=== PATIENT | female | born 1970 | race Caucasian/White ===

== ENCOUNTER 2016-11-25 06:03 | Day surgery (SDC) | payer BC ==
[~2016-11-25 06:03] MED LIST: Lactated Ringers 1,000 ML IV SCH; Lidocaine 1%/Sod Bicarbonate in NS 8.4% 1 ML Syringe PRN; Pregabalin 25 MG Cap PO ONE; Sodium Chloride 0.9% 10 ML Syringe FLUSH PRN; oxyCODONE ER 10 MG TAB.ER PO ONE
[2016-11-25] MEDS ORDERED: Triamcinolone Acetonide 40 MG/ML 1 ML MDV ONE (06:12)
[2016-11-25] MEDS ORDERED: EPINEPHrine 1:1000 1 MG/ML 30 ML MDV ONE (06:12)
--- NOTE | 2016-11-25 06:53 | PCM.PREANE ---
Preanesthetic Assessment - Procedure Proposed Procedure: Left hip video arthroscopy with labral repair - Anesthesia/Transfusion/Family Hx Anesthesia History: Prior Anesthesia Reaction (some nausea from surgery) Family History of Anesthesia Reaction: No Transfusion History: No Prior Transfusion(s) Intubation History: Unknown - Review of Systems General: Other (sinus pressure, in clinic yesterday for it and they okayed her for surgery ) Pulmonary: No Symptoms Cardiovascular: No Symptoms Gastrointestinal: No symptoms Neurological: No Symptoms Other: Reports: None - Physical Assessment NPO Status Date: 11/24/16 NPO Status Time: 21:30 Pulse: 94 O2 Sat by Pulse Oximetry: 99 Respiratory Rate: 16 Blood Pressure: 133/89 Temperature: 37.2 C Height: 1.55 m Weight: 73.482 kg ASA Class: 2 Mental Status: Alert & Oriented x3 Airway Class: Mallampati = 1 Dentition: Reports: Normal Dentition ROM/Head Extension: Full Lungs: Clear to auscultation, Normal respiratory effort Cardiovascular: Regular Rate, Regular Rhythm - Lab Values: Laboratory Last Values MRSA (PCR) Negative 11/17/16 13:51 - Allergies Allergies/Adverse Reactions: Allergies Allergy/AdvReac Type Severity Reaction Status Date / Time No Known Allergies Allergy Verified 11/24/16 14:48 - Blood Blood Available: Yes Product(s) Available: PRBC - Acknowledgements Anesthesia Type Planned: General Anesthesia Pt an Appropriate Candidate for the Planned Anesthesia: Yes Alternatives and Risks of Anesthesia Discussed w Pt/Guardian: Yes Pt/Guardian Understands and Agrees with Anesthesia Plan: Yes PreAnesthesia Questionnaire HEENT History: Reports: Other (See Below) Other HEENT History: acute pharyngitis Cardiovascular History: Reports: None Other Cardiovascular History: heart murmur, mitral valve prolapse Respiratory History: Reports: Other (See Below) Other Respiratory History: URI Other Gastrointestinal History: abdominoplasty in 2008 Genitourinary History: Reports: None 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 Neurological History: Reports: None Psychiatric History: Reports: None Endocrine/Metabolic History: Reports: None Hematologic History: Reports: None Immunologic History: Reports: None Oncologic (Cancer) History: Reports: None Dermatologic History: Reports: Other (See Below) Other Dermatologic History: cold sores - Past Surgical History Head Surgeries/Procedures: Reports: None Female Surgical History: Reports: Section Musculoskeletal Surgical History: Reports: Carpal Tunnel, Other (See Below) Other Musculoskeletal Surgeries/Procedures:: R shoulder scope in 2006, R radial head excision 2006, R elbow surgery 1982 - SUBSTANCE USE Smoking Status *Q: Former Smoker Second Hand Smoke Exposure: No Days Per Week of Alcohol Use: 0 Number of Drinks Per Day: 0 Total Drinks Per Week: 0 Recreational Drug Use History: No - HOME MEDS Home Medications: Home Meds . [No Known Home Meds] 11/24/16 [History] - CURRENT (IN HOUSE) MEDS Current Meds: Current Medications Lactated Ringer's (Ringers, Lactated) 1,000 mls @ 125 mls/hr IV ASDIRECTED LANE Stop: 11/25/16 23:00 Last Admin: 11/25/16 06:25 Dose: 125 mls/hr Lidocaine/Sodium Bicarbonate (Buffered Lidocaine 1% In Ns 8.4%) 0.25 ml .XX ONETIME PRN PRN Reason: Prior to IV Start Stop: 11/25/16 18:00 Last Admin: 11/25/16 06:25 Dose: 0.25 ml Sodium Chloride (Saline Flush) 10 ml FLUSH ASDIRECTED PRN PRN Reason: Keep Vein Open Stop: 11/25/16 18:00 Discontinued Medications Bupivacaine HCl (Marcaine 0.25%) Confirm Administered Dose 30 ml .ROUTE .STK- MED ONE Stop: 11/25/16 06:13 Epinephrine HCl (Adrenalin 1:1000) Confirm Administered Dose 30 mg .ROUTE .STK- MED ONE Stop: 11/25/16 06:13 Acetaminophen (Ofirmev) 100 mls @ 400 mls/hr IV ONETIME ONE Stop: 11/25/16 06:29 Last Admin: 11/25/16 06:30 Dose: 400 mls/hr Oxycodone HCl (Oxycontin) 10 mg PO ONETIME ONE Stop: 11/25/16 06:01 Pregabalin (Lyrica) 50 mg PO ONETIME ONE Stop: 11/25/16 06:01 Triamcinolone Acetonide (Kenalog-40) Confirm Administered Dose 160 mg .ROUTE .STK-MED ONE Stop: 11/25/16 06:13
[2016-11-25] MEDS ORDERED: Propofol 200 MG/20 ML SDV ONE ×2 (06:54→07:24)
[2016-11-25] MEDS ORDERED: Midazolam 1 MG/ML 2 ML SDV ONE (06:54)
[2016-11-25] MEDS ORDERED: fentaNYL 250 MCG/5 ML SDV ONE (06:55)
[2016-11-25] MEDS ORDERED: Rocuronium 50 MG/5 ML Vial ONE ×2 (06:56→09:30)
[2016-11-25] MEDS ORDERED: Ondansetron 4 MG/2 ML SDV ONE (06:56)
[2016-11-25] MEDS ORDERED: ceFAZolin 1 GM Vial ONE (06:56)
[2016-11-25] MEDS ORDERED: Lidocaine 1% 4 ML ONE (06:56)
[2016-11-25] MEDS ORDERED: Dexamethasone 4 MG/ML SDV ONE (07:02)
[2016-11-25] MEDS ORDERED: Lactated Ringers 1,000 ML ONE ×4 (07:05→09:54)
[2016-11-25] MEDS: Bupivacaine 0.25% 30 ML SDV ONE ×3 (07:29→10:30)
[2016-11-25] MEDS ORDERED: Phenylephrine/Normal Saline 100 MCG/ML 10 ML Syringe ONE (07:34)
[2016-11-25] MEDS ORDERED: HYDROmorphone 1 MG/ML Syringe ONE ×2 (08:04→09:27)
[2016-11-25] MEDS ORDERED: Neostigmine Methylsulfate 1 MG/ML 5 ML Syringe ONE (08:16)
[2016-11-25] MEDS ORDERED: Ketamine 500 mg/10 ML MDV ONE (08:17)
[2016-11-25] MEDS ORDERED: Ketorolac 30 MG/ML SDV ONE (08:17)
[2016-11-25] MEDS ORDERED: diphenhydrAMINE 50 MG/ML SDV IVPUSH PRN (08:43)
[2016-11-25] MEDS ORDERED: Ondansetron 4 MG/2 ML SDV IVPUSH PRN (08:43)
[2016-11-25] MEDS ORDERED: fentaNYL 100 MCG/2 ML SDV IVPUSH PRN (08:43)
[2016-11-25] MEDS ORDERED: Meperidine PF 50 MG/ML Syringe IVPUSH PRN (09:50)
[2016-11-25] MEDS ORDERED: HYDROmorphone 0.5 MG/0.5 ML Syringe IVPUSH PRN (09:50)
[2016-11-25] MEDS ORDERED: Bupivacaine 0.25% 30 ML SDV ONE (10:12)
[2016-11-25] MEDS ORDERED: Flumazenil 0.1 MG/ML 5 ML MDV ONE (10:50)
[2016-11-25] MEDS ORDERED: Naloxone 0.4 MG/ML SDV ONE (10:55)
--- NOTE | 2016-11-25 11:18 | CR ---
Left hip: Multiple fluoroscopic spot views were obtained of the left hip. Study obtained utilizing C-arm device. Study is a arthroscopy exam of the left hip. Fluoroscopy time given as 116.0 seconds. Impression: 1. Findings as noted above. Diagnostic code #1
--- NOTE | 2016-11-25 11:33 | PCM.POSTAN ---
POST ANESTHESIA ASSESSMENT - MENTAL STATUS Mental Status: alert - VITAL SIGNS Pulse Rate: 109 SaO2: 97 Resp Rate: 16 Blood Pressure: 136/80 Temperature: 37.5 C - RESPIRATORY Respiratory Status: respiratory rate WNL, airway patent, O2 saturation stable - CARDIOVASCULAR CV Status: blood pressure stable, elevated pulse rate - GASTROINTESTINAL GI Status: no symptoms - PAIN Pain Score: 0 - POST OP HYDRATION Hydration Status: adequate & stable
[2016-11-25] MEDS ORDERED: Cyclobenzaprine 10 MG Tab PO PRN (11:34)
[2016-11-25] MEDS ORDERED: Acetaminophen/oxyCODONE 325-5 MG Tab PO PRN (11:34)
--- NOTE | 2016-11-25 12:12 | PCM48HPAN ---
Post Anesthesia Note - EVALUATION WITHIN 48HRS OF ANESTHETIC Vital Signs in Normal Range: Yes Patient Participated in Evaluation: No (talked with RN, patient stable upon discharge ) Respiratory Function Stable: Yes Airway Patent: Yes Cardiovascular Function Stable: Yes Hydration Status Stable: Yes Pain Control Satisfactory: Yes Nausea and Vomiting Control Satisfactory: Yes Mental Status Recovered: Yes
[2016-11-25 13:05] VITALS: BP 112/73
--- NOTE | 2016-11-29 22:01 | PCM.OPNOTE ---
- General Post-Op/Procedure Note Date of Surgery/Procedure: 11/25/16 Operative Procedure(s): left hip video arthroscopy with acetabuloplasty and labral repair Pre Op Diagnosis: left hip femoroacetabular impingement Post-Op Diagnosis: Same Anesthesia Technique: General ET tube Primary Surgeon: Sanjay Blackburn Anesthesia Provider: Raiza Anthony [employer] Team Member: Ellen Zeng EBL in mLs: 10 Complications: None Condition: Good
--- NOTE | 2016-11-29 22:37 | OR ---
DATE OF OPERATION: 11/25/2016 SURGEON: Sanjay Blackburn MD OPERATION PERFORMED: Left hip video arthroscopy with acetabuloplasty and labral repair. PREOPERATIVE DIAGNOSIS: Left hip femoroacetabular impingement. POSTOPERATIVE DIAGNOSIS: Left hip femoroacetabular impingement. ANESTHESIA: General endotracheal intubation. ANESTHESIA PROVIDER: Armen Pinon. ANGLE DOZER OPERATOR: Ellen Zeng PA-C. ESTIMATED BLOOD LOSS: 10 mL. COMPLICATIONS: None. CONDITION: Stable. DESCRIPTION OF PROCEDURE: The patient was identified in the preop holding area, where proper site was marked and identified by the surgeon. The patient was taken back to the operating theater where after adequate anesthesia, the patient was placed on traction table. Right lower extremity was placed in a traction boot, but no fine traction was applied. The left lower extremity was also placed in a traction boot and gross traction was applied to the left lower extremity. After the PEG was placed, the patient was secured to the table. At this time, the left hip was then sterilely prepped and draped in the usual sterile fashion. OR time-out was performed. The patient received 2 g of IV Ancef. Standard lateral portal was created with the use of a spinal needle. Guidewire was then placed. A small incision was made in the skin and a dilator was then placed into the joint. The cannula was then placed. It was found to be in adequate position . Under direct visualization with use of a spinal needle, the mid anterior lateral portal was then created. Guidewire was then placed again. Incision was made. Dilator was placed and then another cannula was placed. Arthroscopy fluid was then turned on. Visualization showed both portals to be in proper position. A Samurai stirrup was then placed in the mid anterior lateral portal and a capsulotomy was performed from the lateral portal all the way medially. Next, direct visualization showed delamination of the anterior and lateral portion of the cartilage of the acetabulum as well as significant labral fraying. Under fluoroscopic guidance, it was noted that our lateral portal went near the calcification noted which was found to be in the capsule. At this time with the use of a resector and cautery, I was able to visualize the rim of the acetabulum. The patient had a significant pincer lesion along with the calcium deposit. The calcium deposit was mostly debrided and then starting we were able to resect back roughly 8 mm on the rim of the acetabulum all the way from the anterior portion all the way laterally to remove the pincer lesion. The patient's delaminated cartilage as well as the labrum then had 3 anchors placed and were tied starting anterior then and all the way laterally, was found to have good christianity of the cartilage footprint as well as the labrum being stable on the rim. At this time, attention was turned to C-arm fluoroscopy which full visualization of the femoral neck showed no significant CAM lesion in all views. At this time, the fine traction was removed. Capsular closure had 1 stitch placed, and then all instrumentation was removed. Excess saline was drained from the hip. The patient had the portal incisions closed with 3-0 nylon simple sutures and a sterile soft dressing was applied. The patient tolerated the procedure well and was sent to PACU in stable condition. REJI /[id number]
== END 2016-11-25 15:10 | disposition home or self-care (01) ==
LOC: JD.SDS 06:03
PROVIDERS: ATTEND Orthopaedic Surgery
PROC: 0SQB4ZZ Repair Left Hip Joint, Percutaneous Endoscopic Approach (ICD-10-PCS; principal; 2016-11-25)
DX: M25.852 Other specified joint disorders, left hip (principal); Z87.891 Personal history of nicotine dependence; Z79.899 Other long term (current) drug therapy; Z98.890 Other specified postprocedural states
CPT/HCPCS: 29915; 76000; 87641; A9270; C1713; J0171; J0690; J1100; J1170; J1885; J2250; J2310; J2405; J2710; J3010; J3301; J7120; 01202; J2704; J3490

== ENCOUNTER 2018-12-09 22:36 | Emergency (ER) | payer BC ==
[2018-12-09 22:45] VITALS: BP 147/68
--- NOTE | 2018-12-09 23:24 | EDM.PDOC ---
ED HPI GENERAL MEDICAL PROBLEM - General Chief Complaint: Headache Stated Complaint: headache Time Seen by Provider: 12/09/18 23:00 Source of Information: Reports: Patient History Limitations: Reports: No Limitations - History of Present Illness INITIAL COMMENTS - FREE TEXT/NARRATIVE: This is a 48-year-old female. She had sudden onset of severe posterior headache was pounding seemed to go up into her for head. She's never had headaches like this before. She was about [place] miles away from [facility] at the time she did take some [id number] medications but she was advised by her doctor friend to be evaluated in the ER. When she arrived here she was not really having any headache symptoms and did not desire any medications for her headache but she is concerned since this is unusual for her. She had no numbness tingling no weakness of her extremities during this initial onset of headache. She had no nausea and vomiting with a headache. She does have some trapezius muscle soreness and mild paraspinal muscle soreness from working out in the gym but that is not unusual for her. She denies any other acute symptoms. Treatments INCIDENT RESPONSE LEAD: Reports: NSAIDS Headache Pain Score (Numeric/FACES): 4 - Related Data Allergies Allergy/AdvReac Type Severity Reaction Status Date / Time No Known Allergies Allergy Verified 01/19/18 09:32 Home Meds: Home Meds Acyclovir 1 dose TOP Q4H PRN 01/18/18 [History] Nabumetone 500 mg PO BID 01/18/18 [History] Past Medical History HEENT History: Reports: Other (See Below) Other HEENT History: acute pharyngitis Cardiovascular History: Reports: None Other Cardiovascular History: heart murmur, mitral valve prolapse Respiratory History: Reports: Other (See Below) Other Respiratory History: URI Other Gastrointestinal History: abdominoplasty in 2008 Genitourinary History: Reports: Other (See Below) Other Genitourinary History: frequency, UTI 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 Musculoskeletal History: right hip impingement, left hip pain Neurological History: Reports: None Psychiatric History: Reports: None Endocrine/Metabolic History: Reports: None Hematologic History: Reports: None Immunologic History: Reports: None Oncologic (Cancer) History: Reports: None Dermatologic History: Reports: Other (See Below) Other Dermatologic History: cold sores - Infectious Disease History Infectious Disease History: Reports: Shingles - Past Surgical History Head Surgeries/Procedures: Reports: None Respiratory Surgical History: Reports: None Female Surgical History: Reports: Section Neurological Surgical History: Reports: None Musculoskeletal Surgical History: Reports: Carpal Tunnel, Other (See Below) Other Musculoskeletal Surgeries/Procedures:: R shoulder scope in 2006, R radial head excision 2006, R elbow surgery 1982, left hip arthroscopy Social & Family History - Family History Family Medical History: Noncontributory - Tobacco Use Smoking Status *Q: Never Smoker Second Hand Smoke Exposure: No - Caffeine Use Caffeine Use: Reports: Coffee, Soda ED ROS GENERAL - Review of Systems Review Of Systems: See Below Constitutional: Denies: Fever, Chills HEENT: Reports: No Symptoms Respiratory: Reports: No Symptoms Cardiovascular: Reports: No Symptoms Endocrine: Reports: No Symptoms GI/Abdominal: Reports: No Symptoms : Reports: No Symptoms Musculoskeletal: Reports: No Symptoms Skin: Reports: No Symptoms Neurological: Reports: Headache Psychiatric: Reports: No Symptoms Hematologic/Lymphatic: Reports: No Symptoms - Physical Exam Exam: See Below Exam Limited By: No Limitations General Appearance: Alert, WD/WN, No Apparent Distress Eye Exam: Bilateral Eye: Normal Inspection Ears: Normal External Exam, Normal Canal, Normal TMs Nose: Normal Inspection Throat/Mouth: Normal Inspection, Normal Lips, Normal Voice, No Airway Compromise Head Exam: Normocephalic Neck: Supple Respiratory/Chest: No Respiratory Distress, Lungs Clear, Normal Breath Sounds Cardiovascular: Regular Rate, Rhythm, No Murmur GI/Abdominal: Soft Neuro Exam (Abbreviated): Alert, Oriented, CN II-XII Intact, No Motor/Sensory Deficits Back Exam: Normal Inspection, Full Range of Motion Extremities: Normal Inspection, Normal Range of Motion Psychiatric: Normal Affect, Normal Mood Skin Exam: Warm, Dry Course - Vital Signs Last Recorded V/S: Last Vital Signs Temp 96.8 F 12/09/18 22:42 Pulse 75 12/09/18 22:42 Resp 16 12/09/18 22:42 BP 147/68 H 12/09/18 22:42 Pulse Ox 98 12/09/18 22:42 - Orders/Labs/Meds Orders: Active Orders 24 hr Category Date Time Status Head wo Cont [CT] Stat Exams 12/09/18 23:19 Taken - Radiology Interpretation Free Text/Narrative:: CT scan of the head did not show any acute changes - Re-Assessments/Exams Free Text/Narrative Re-Assessment/Exam: 12/10/18 00:28 Spoke to the patient regarding the CT scan. I am pleased that her headache is essentially resolved with [id number] medication suggesting that this could be just a tension headache or possible a vascular headache. She needs to follow-up with her family doctor if this reoccurs for reevaluation. Departure - Departure Time of Disposition: 00:29 Disposition: Home, Self-Care 01 Condition: Good Clinical Impression: Tension-type headache - Discharge Information *PRESCRIPTION DRUG MONITORING PROGRAM REVIEWED*: No *COPY OF PRESCRIPTION DRUG MONITORING REPORT IN PATIENT JOSH: No Instructions: Tension Headache, Adult, [id number] Referrals: PCP,Not In Area [Primary Care Provider] - Forms: ED Department Discharge Additional Instructions: Home and sleep, continue with the [id number] medication if the headache lingers, if you have recurrence of these type of headaches you will need workup with your family doctor, return to the ER if needed - My Orders Last 24 Hours: My Active Orders 12/09/18 23:19 Head wo Cont [CT] Stat - Assessment/Plan Last 24 Hours: My Active Orders 12/09/18 23:19 Head wo Cont [CT] Stat
--- NOTE | 2018-12-11 11:06 | CT ---
Head CT Technique: Multiple axial sections through the brain were obtained. Intravenous contrast was not utilized. Comparison: No prior head CT exam, previous MRI brain of 12/14/11. Findings: Ventricles along with basal cisterns and sulci over the convexities are within normal limits. Incidental so-called empty sella is noted which is stable from prior MRI. No abnormal parenchymal densities are seen. No evidence of intracranial hemorrhage. No midline shift or mass effect is seen. Bone window settings were reviewed which show the visualized sinuses to appear clear. No acute calvarial abnormality is seen. Impression: 1. Nothing acute is appreciated on noncontrast head CT exam. Stable and incidental finding as noted above. Diagnostic code #2 I agree with preliminary report from [facility], finalized on 12/10/18, 1:13 AM Central Time
== END 2018-12-10 00:34 | disposition home or self-care (01) ==
LOC: JD.ED 22:36
DX: G44.209 Tension-type headache, unspecified, not intractable (principal); Z79.899 Other long term (current) drug therapy
CPT/HCPCS: 70450; 70450-26; 99282; 99284-25

== ENCOUNTER 2021-03-04 14:02 | Emergency (ER) | payer BC ==
[2021-03-04 14:45] VITALS: BP 155/96; PULSE 100
--- NOTE | 2021-03-04 15:32 | CT ---
Head CT Technique: Multiple axial sections through the brain were obtained. Reconstructed coronal and sagittal images were obtained. Comparison: Prior MRI brain study of 12/14/[address] study of 12/09/18 Findings: Ventricles along with basal cisterns and sulci over the convexities appear within normal limits for the patient's age. So-called empty sella is again noted which is stable from prior exams. No abnormal parenchymal densities are seen. No evidence of intracranial hemorrhage is seen. No midline shift or mass-effect is seen. Bone window settings were reviewed. No acute calvarial abnormality is appreciated. Visualized mastoid sinuses and paranasal sinuses show nothing acute. Impression: 1. Incidental finding of empty sella which is stable. 2. Nothing acute is appreciated on noncontrast head CT study. Diagnostic code #2
--- NOTE | 2021-03-04 17:11 | EDM.PDOC ---
ED HPI GENERAL MEDICAL PROBLEM - General Chief Complaint: Neurological Problem Stated Complaint: DOUBLE VISION LEFT EYE LEG TINGLING Time Seen by Provider: 03/04/21 14:56 Source of Information: Reports: Patient History Limitations: Reports: No Limitations - History of Present Illness INITIAL COMMENTS - FREE TEXT/NARRATIVE: The patient presents with a headache, double vision and tingling in the let arm and leg. This all started last night with a headache. Today she was doing some paperwork and she developed some double vision. That is better now. She also has some tingling in the left arm and leg. The headache is better and nearly gone. She has no weakness. She has no fever, chills, cough, chest pain, shortness of breath, abdominal pain, nausea or vomiting. Onset: Gradual Duration: Hour(s): Location: Reports: Upper Extremity, Left, Lower Extremity, Left Quality: Reports: Other (tingling) Severity: Mild Improves with: Reports: None Worsens with: Reports: None Associated Symptoms: Reports: Headaches. Denies: Chest Pain, Cough, Fever/Chills, Nausea/Vomiting, Shortness of Breath - Related Data Allergies Allergy/AdvReac Type Severity Reaction Status Date / Time No Known Allergies Allergy Verified 01/19/18 09:32 Past Medical History HEENT History: Reports: Other (See Below) Other HEENT History: acute pharyngitis Cardiovascular History: Reports: None Other Cardiovascular History: heart murmur, mitral valve prolapse Respiratory History: Reports: Other (See Below) Other Respiratory History: URI Other Gastrointestinal History: abdominoplasty in 2008 Genitourinary History: Reports: Other (See Below) Other Genitourinary History: frequency, UTI 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 Musculoskeletal History: right hip impingement, left hip pain Neurological History: Reports: None Psychiatric History: Reports: None Endocrine/Metabolic History: Reports: None Hematologic History: Reports: None Immunologic History: Reports: None Oncologic (Cancer) History: Reports: None Dermatologic History: Reports: Other (See Below) Other Dermatologic History: cold sores - Infectious Disease History Infectious Disease History: Reports: Chicken Pox, Shingles - Past Surgical History Head Surgeries/Procedures: Reports: None Respiratory Surgical History: Reports: None Female Surgical History: Reports: Section Neurological Surgical History: Reports: None Musculoskeletal Surgical History: Reports: Carpal Tunnel, Other (See Below) Other Musculoskeletal Surgeries/Procedures:: R shoulder scope in 2006, R radial head excision 2006, R elbow surgery 1982, left hip arthroscopy Social & Family History - Family History Family Medical History: No Pertinent Family History - Tobacco Use Tobacco Use Status *Q: Former Tobacco User Used Tobacco, but Quit: No - Caffeine Use Caffeine Use: Reports: Coffee - Recreational Drug Use Recreational Drug Use: No ED ROS GENERAL - Review of Systems Review Of Systems: See Below Constitutional: Reports: No Symptoms HEENT: Reports: No Symptoms Respiratory: Reports: No Symptoms Cardiovascular: Reports: No Symptoms Endocrine: Reports: No Symptoms GI/Abdominal: Reports: No Symptoms : Reports: No Symptoms ED EXAM, NEURO - Physical Exam Exam: See Below Exam Limited By: No Limitations General Appearance: Alert, No Apparent Distress Eye Exam: Bilateral Eye: EOMI Ears: Normal External Exam Nose: Normal Inspection Head Exam: Atraumatic, Normocephalic Neck: Normal Inspection Respiratory/Chest: No Respiratory Distress, Lungs Clear, Normal Breath Sounds Cardiovascular: Regular Rate, Rhythm, No Edema, No Murmur GI/Abdominal: Soft, Non-Tender, No Organomegaly, No Mass Neurological: Alert, No Motor/Sensory Deficits, Oriented x 3 #1 Interpretation EKG Date: 03/04/21 Time: 15:15 Rhythm: NSR Rate (Beats/Min): 73 Bryant: Normal P-Wave: Present QRS: Normal ST-T: Normal QT: Normal Course - Vital Signs Last Recorded V/S: Last Vital Signs Temp 98.8 F 03/04/21 14:40 Pulse 100 03/04/21 14:40 Resp 18 03/04/21 14:40 BP 155/96 H 03/04/21 14:40 Pulse Ox 100 03/04/21 14:40 - Orders/Labs/Meds Orders: Active Orders 24 hr Category Date Time Status Cardiac Monitoring [RC] . DIRECTED Care 03/04/21 15:07 Active Labs: Laboratory Tests 03/04/21 03/04/21 Range/Units 16:00 16:00 WBC 8.00 (3.98-10.04) K/mm3 RBC 4.85 (3.98-5.22) M/mm3 Hgb 14.9 (11.2-15.7) gm/dl Hct 44.5 (34.1-44.9) % MCV 91.8 (79.4-94.8) fl MCH 30.7 (25.6-32.2) pg MCHC 33.5 (32.2-35.5) g/dl RDW Std Deviation 41.3 (36.4-46.3) fL Plt Count 325 (182-369) K/mm3 MPV 11.0 (9.4-12.3) fl Neut % (Auto) 74.0 H (34.0-71.1) % Lymph % (Auto) 15.1 L (19.3-51.7) % [place] % (Auto) 8.0 (4.7-12.5) % Eos % (Auto) 2.3 (0.7-5.8) Baso % (Auto) 0.3 (0.1-1.2) % Neut # (Auto) 5.93 (1.56-6.13) K/mm3 Lymph # (Auto) 1.21 (1.18-3.74) K/mm3 [place] # (Auto) 0.64 H (0.24-0.36) K/mm3 Eos # (Auto) 0.18 (0.04-0.36) K/mm3 Baso # (Auto) 0.02 (0.01-0.08) K/mm3 Sodium 141 (136-145) mEq/L Potassium 4.3 (3.5-5.1) mEq/L Chloride 105 (98-107) mEq/L Carbon Dioxide 26 (21-32) mEq/L Anion Gap 14.3 (5-15) BUN 12 (7-18) mg/dL Creatinine 0.7 (0.55-1.02) mg/dL Est Cr Clr Drug Dosing 72.55 mL/min Estimated GFR (MDRD) > 60 (>60) mL/min BUN/Creatinine Ratio 17.1 (14-18) Glucose 108 H (70-99) mg/dL Calcium 8.7 (8.5-10.1) mg/dL Magnesium 1.8 (1.8-2.4) mg/dL Total Bilirubin 0.2 (0.2-1.0) mg/dL AST 20 (15-37) U/L ALT 25 (14-59) U/L Alkaline Phosphatase 50 (46-116) U/L Troponin I < 0.017 (0.00-0.056) ng/mL Total Protein 7.3 (6.4-8.2) g/dl Albumin 3.8 (3.4-5.0) g/dl Globulin 3.5 gm/dL Albumin/Globulin Ratio 1.1 (1-2) - Re-Assessments/Exams Free Text/Narrative Re-Assessment/Exam: 03/04/21 17:09 I ordered an EKG, CT of her head and labs. Her EKG shows a NSR with no acute changes. Her CBC and CMP look good. Her troponin is negative. She feels better. I feel this may be related to the headache she had. I will have her follow up with her doctor. Departure - Departure Time of Disposition: 17:15 Disposition: Home, Self-Care 01 Condition: Good Clinical Impression: Tingling of left arm and left side of face Headache Qualifiers: Headache type: other headache syndrome Qualified Code(s): G44.89 - Other headache syndrome - Discharge Information *PRESCRIPTION DRUG MONITORING PROGRAM REVIEWED*: Not Applicable *COPY OF PRESCRIPTION DRUG MONITORING REPORT IN PATIENT JOSH: Not Applicable Referrals: Sierra Rodriguez PA-C [Primary Care Provider] - 1 Week Additional Instructions: Follow up with Lizbeth Rodriguez within a week. Go home and rest. Take tylenol or motrin as needed for any headache. Please return if you are worse. Sepsis Event Note (ED) - Focused Exam Vital Signs: Vital Signs Temp Pulse Resp BP Pulse Ox 03/04/21 14:40 98.8 F 100 18 155/96 H 100 - My Orders Last 24 Hours: My Active Orders 03/04/21 15:07 Cardiac Monitoring [RC] . DIRECTED - Assessment/Plan Last 24 Hours: My Active Orders 03/04/21 15:07 Cardiac Monitoring [RC] . DIRECTED
== END 2021-03-04 17:23 | disposition home or self-care (01) ==
LOC: JD.ED 14:02
DX: G44.89 Other headache syndrome (principal); R20.2 Paresthesia of skin; Z87.891 Personal history of nicotine dependence
CPT/HCPCS: 36415; 70450; 70450-26; 80053; 83735; 84484; 85025; 93005; 93010; 99284; 99284-25

== ENCOUNTER 2023-05-09 06:00 | Day surgery (SDC) | payer BC ==
[~2023-05-09 06:00] MED LIST changes: -Lidocaine 1%/Sod Bicarbonate in NS 8.4% 1 ML Syringe PRN; -Pregabalin 25 MG Cap PO ONE; +Sodium Chloride 0.9% 10 ML Syringe FLUSH SCH; -oxyCODONE ER 10 MG TAB.ER PO ONE
[2023-05-09] MEDS ORDERED: Bupivacaine 0.25% 10 ML SDV ONE (06:09)
[2023-05-09] MEDS ORDERED: Lidocaine 1% 10 ML MDV ONE (06:09)
[2023-05-09] MEDS ORDERED: Midazolam 1 MG/ML 2 ML SDV ONE (06:57)
[2023-05-09] MEDS ORDERED: Propofol 200 MG/20 ML SDV ONE (06:57)
[2023-05-09] MEDS ORDERED: Lidocaine 2% 5 ML SDV ONE (07:07)
[2023-05-09 08:53] VITALS: BP 138/80; PULSE 66
== END 2023-05-09 09:12 | disposition home or self-care (01) ==
LOC: JD.SDS 06:00
PROVIDERS: ATTEND Orthopaedic Surgery
DX: M65.311 Trigger thumb, right thumb (principal); N39.0 Urinary tract infection, site not specified; E78.00 Pure hypercholesterolemia, unspecified; E11.9 Type 2 diabetes mellitus without complications; Z98.890 Other specified postprocedural states; Z79.899 Other long term (current) drug therapy; Z79.85 Long-term (current) use of injectable non-insulin antidiabetic drugs; Z79.84 Long term (current) use of oral hypoglycemic drugs
CPT/HCPCS: 26055; J2250; J2704; J3490; J7120; 01810